=== PATIENT | female | born 1965 | race Caucasian/White ===

== ENCOUNTER 2018-11-10 08:39 | Emergency (ER) | payer OTHER, MEDICARE ==
[~2018-11-10] VITALS: Ht 160 cm; Wt 110.2 kg
[~2018-11-10 08:39] MED LIST: ALBUTEROL2.5 MG/0.5; ALBUTEROL2.5 MG/3 M INH; CRUTCH1 EACH MISC; DILAUDID4 MG PO; IBUPROFEN800 MG PO; MEDICAL MARIJUANA; NICOTINE PATCH1 EAC3 TD; OMEPRAZOLE20 MG; OMEPRAZOLE20 MG PO; OXYCODONE HCL5 MG PO; XANAX0.25 MG PO; XARELTO10 MG PO
[2018-11-10] MEDS ORDERED: PERCOCET 5-3251 EACH PO (11:40)
== END 2018-11-10 12:05 | disposition home or self-care (01) ==
LOC: ED 08:39
DX: S82.832A Other fracture of upper and lower end of left fibula, initial encounter for closed fracture (principal); I10 Essential (primary) hypertension; F17.200 Nicotine dependence, unspecified, uncomplicated; Z88.5 Allergy status to narcotic agent; Z88.8 Allergy status to other drugs, medicaments and biological substances; Z79.899 Other long term (current) drug therapy; W10.8XXA Fall (on) (from) other stairs and steps, initial encounter
CPT/HCPCS: 73560; 73630; 99283

== ENCOUNTER 2019-11-30 18:35 | Emergency (ER) | payer MEDICARE, OTHER ==
[~2019-11-30] VITALS: Ht 160 cm; Wt 110.2 kg
--- OUTSIDE RECORDS SUMMARY | ~2019-11-30 | XMS | Encounter Summary ---
Demographics + + + | Address | [address] | | | [place] [address] | + + + | Home Phone | | + + + | Preferred Language | Unknown | + + + | Marital Status | Unknown | + + + | Mandaen Affiliation | Unknown | + + + | Race | White | + + + | Ethnic Group | Not or | + + + Author + + + | Author | [facility] | | | and [place] | + + + | Organization | [facility] | | | and [place] | + + + | Address | Unknown | + + + | Phone | Unavailable | + + + Support + + +---------+ + | Name | Relationship | Address | Phone | + + +---------+ + | Chosen None | ECON | Unknown | | + + +---------+ + Care Team Providers + +------+ + | Care Evaporator Operator Molasses Name | Role | Phone | + +------+ + | Desiree Randall MD | PCP | | + +------+ + Encounter Details +--------+ + + + + | Date | Type | Department | Care Team | Description | +--------+ + + + + | 11/15/ | Imaging | [facility] | Provider, | | | 2018 | Exam | [facility] | [address] | | | | | IMAGING [address] | [address] | | | | | [address] | [place] [address] | | | | | [place] [address] | | | | | | [phone] | | | +--------+ + + + + Social History + +-------+ +--------+------+ | Tobacco Use | Types | Packs/Day | Years | Date | | | | | Used | | + +-------+ +--------+------+ | Never Assessed | | | | | + +-------+ +--------+------+ + + + | Sex Assigned at | Date Recorded | | | | + + + | Not on file | | + + + documented as of this encounter Plan of Treatment Not on filedocumented as of this encounter Procedures + +--------+ + + + | Procedure Name | Priori | Date/Time | Associated Diagnosis | Comments | | | ty | | | | + +--------+ + + + | MRI CERVICAL SPINE | Routin | 03/12/2017 | | Results for this | | WO CONTRAST | e | 12:00 PM | | procedure are in the | | | | PST | | results section. | + +--------+ + + + documented in this encounter Results MRI Cervical Spine wo Contrast (03/12/2017 12:00 PM PST) + + | Specimen | + + | | + + + + + | Narrative | Performed At | + + + | External films for comparison only | [facility] | | | | | No results will be in the chart. | | + + + + +---------+ + + | Performing | Address | City/State/Zipcode | Phone Number | | Organization | | | | + +---------+ + + | [facility] | | | | + +---------+ + + documented in this encounter Visit Diagnoses Not on filedocumented in this encounter"
--- OUTSIDE RECORDS SUMMARY | ~2019-11-30 | XMS | Encounter Summary ---
Demographics + + + | Address | [address] | | | [place] [address] | + + + | Home Phone | | + + + | Preferred Language | Unknown | + + + | Marital Status | Unknown | + + + | Yazidism Affiliation | Unknown | + + + | Race | White | + + + | Ethnic Group | Not or | + + + Author + + + | Author | [facility] | | | and [place] | + + + | Organization | [facility] | | | [...] Team Providers + +------+ + | Care Shot Core Drill Operator Helper Name | Role | Phone | + +------+ + | Desiree Randall MD | PCP | | + +------+ + Reason for Referral Evaluate & Treat (Routine) +--------+ + + + + + | Status | Reason | Specialty | Diagnoses / | Referred By | Referred To | | | | | Procedures | Contact | Contact | +--------+ + + + + + | Closed | Specialty | Physical | Diagnoses | Francisco, | Joey Singh | | | Services | Medicine and | Bilateral | Joey Carlos MD | Alexandra Carlos MD [address] | | | Required | Rehabilitatio | hand | [address] | | | | n | numbness | [address] | [place], | | | | | Weakness of | [place], | [place] [address] | | | | | both hands | [place] [address] | Phone: | | | | | Bilateral | Phone: | [phone] | | | | | elbow joint | [phone] | Fax: | | | | | pain | Fax: | [phone] | | | | | Cervicalgia | [phone] | | | | | | Procedures | | | | | | | VT MOTOR | | | | | | | &/SENS | | | | | | | NRV CNDJ | | | | | | | PRECONF | | | | | | | ELTRODE LIMB | | | | | | | VT NEEDLE | | | | | | | EMG EA | | | | | | | EXTREMITY | | | | | | | W/PARASPINL | | | | | | | AREA LIMITED | | | | | | | DOS | | | | | | | 06/17/18 | | | +--------+ + + + + + Reason for Visit + + + | Reason | Comments | + + + | Neck Pain | | + + + Evaluate & Treat (Routine) +--------+--------+ + + + + | Status | Reason | Specialty | Diagnoses / | Referred By | Referred To | | | | | Procedures | Contact | Contact | +--------+--------+ + + + + | Closed | | Physical | Diagnoses | Randall, | Joey Singh | | | | Medicine and | Chronic | Desiree Ulloa MD | Alexandra Carlos MD [address] | | | | Rehabilitatio | neck pain | [address] | | | | n | [address] | [place], | | | | | | [place], | [place] [address] | | | | | | [place] [address] | Phone: | | | | | | Phone: | [phone] | | | | | | [phone] | Fax: | | | | | | Fax: | [phone] | | | | | | [phone] | | +--------+--------+ + + + + Encounter Details +--------+---------+ + + + | Date | Type | Department | Care Team | Description | +--------+---------+ + + + | 04/10/ | Office | [facility] | Joey Singh, | Bilateral hand | | 2018 | Visit | PHYSIATRY [address] | MD [address] | numbness (Primary | | | | [address] | [place] | Dx); Weakness of | | | | [place] | [address] | both hands; | | | | [address] | | Bilateral elbow | | | | [phone] | | joint pain; Medial | | | | | | epicondylitis of | | | | | | right elbow; | | | | | | Cervicalgia; History | | | | | | of fibromyalgia | +--------+---------+ + + + Social History + + + +--------+ + | Tobacco Use | Types | Packs/Day | Years | Date | | | | | Used | | + + + +--------+ + | Former Smoker | Cigarettes | 0.5 | | Started: 06/12/1980 | + + + +--------+ + + +---+---+---+ | Smokeless Tobacco: | | | | | Never Used | | | | + +---+---+---+ + + +---------+ + | Alcohol Use | Drinks/Week | oz/Week | Comments | + + +---------+ + | No | | | | + + +---------+ + + + + | Sex Assigned at | Date Recorded | | | | + + + | Not on file | | + + + documented as of this encounter Last Filed Vital Signs + + + + + | Vital Sign | Reading | Time Taken | Comments | + + + + + | Blood Pressure | 100/70 | 04/10/2018 1:11 PM | | | | | PST | | + + + + + | Pulse | 84 | 04/10/2018 1:11 PM | | | | | PST | | + + + + + | Temperature | - | - | | + + + + + | Respiratory Rate | - | - | | + + + + + | Oxygen Saturation | - | - | | + + + + + | Inhaled Oxygen | - | - | | | Concentration | | | | + + + + + | Weight | 113.4 kg (250 lb) | 04/10/2018 1:11 PM | | | | | PST | | + + + + + | Height | 160 cm (5' 3") | 04/10/2018 1:11 PM | | | | | PST | | + + + + + | Body Mass Index | 44.29 | 04/10/2018 1:11 PM | | | | | PST | | + + + + + documented in this encounter Patient Instructions Patient Instructions Candice Davenport, Human Relations Teacher - 04/10/2018 1:00 PM PSTPurcha se and wear carpal tunnel wrist splints. Wear them at night, only at night, every night, ne brenda during waking hours. Make sure they are not too tight. They only need to prevent the w rists from bending during sleep. Please attend your scheduled nerve conduction study and EMG appointment. Nerve conduction studies and EMG require a great deal of time to complete. If you will be unable to make your appointment please contact the clinic at least one full business day carter or to your appointment . Missed appoints without cancellation will only be re scheduled once. Children under the age of 13 are not permitted in the room during the nerve study. If acco mpanied by children under the age of 13, they will need an adult to supervise them, while th ey wait in the lobby. Prior to your appointment wash the skin with soap and water. This is to remove any of the natural oils on the skin which may interfere with the completion of the study. Please do not wear any lotion prior to the study as lotion may also interfere with the comp letion of the study. When attending your study please bring appropriate attire. If you are having a study of th e upper extremities please bring a short sleeve shirt to wear during the study. If you are having a study of the lower extremities please bring shorts to wear during the study. At the time of your study, please remind the physician if you are taking any blood thinning medications such as Coumadin, or heparin. At the time of your study, please remind the physician if you have an implanted electronic device such as a pacemaker. documented in this encounter Progress Notes Joey Singh MD - 04/10/2018 1:00 PM PSTFormatting of this note might be different fro m the original. Joey Singh MD [address] [place] [address], [address] [place], [place] [address] FAX: PHYSICAL MEDICINE AND REHABILITATION H&P CHIEF COMPLAINT: Chief Complaint Patient presents with Neck Pain HISTORY OF PRESENT ILLNESS: Liliana Cabral is a 52 y.o. female being seen today at the [facility] of Desiree Randall MD for complaints of neck pain that began 3 years ago. Since the sy mptoms began, she has noticed that symptoms have been worsening. Liliana Cabral rates the pain as moderate. The symptoms are continuous. Liliana Cabral d escribes the pain as aching, numbing, sharp and tingling. Her symptoms improve with rest and changing position. Her symptoms worsen with laying down and stretching. The patient also describes arm symptoms that occur on both sides. The arm symptoms are con stant The patient does describe numbness of the third through fifth digit on the left and first a nd second digit on the right. She does report weakness of the bilateral upper extremities. Liliana Cabral reports bilateral elbow pain. She reports the inability to brush her own h air due to pain. She has tried PT, NSAIDS, Steroids and Injections. Liliana Cabral reports that she parti cipated in physical therapy in December of 2017. She reports that she continues with at home exercises as outlined by physical therapy. Liliana Cabral denies taking blood thinning medications such as Coumadin or heparin. She denies having implanted electronic device such as a pacemaker. She denies a history of diabetes. She denies a history of thyroid disease. She denies a history of rheumatoid arthritis. She denies a history of chemical exposure. Liliana Cabral reports that they have had previous nerve conduction study with Dr.Chapin janette vogt 1 year ago. She reports that nerve study was unremarkable. Patient's medications, allergies, past medical, surgical, social and family histories were reviewed and updated as appropriate. 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-steroidal anti-inflammatories (nsaid) Mild intermittent asthma Morbid obesity due to excess calories (HCC) Morbid obesity with BMI of 40.0-44.9, adult (HCC) Osteoarthritis Prediabetes PTSD (post-traumatic stress disorder) Vitamin B12 deficiency Vitamin D deficiency PAST SURGICAL HISTORY: Past Surgical History: Procedure Laterality Date CHOLECYSTECTOMY 2000 KNEE JOINT REPLACEMENT Left 07/2016 KNEE SURGERY Left KNEE SURGERY Right MOUTH SURGERY 2013 SHOULDER SURGERY Right 1999 TUBAL LIGATION 1993 CURRENT MEDICATIONS: Current Outpatient Prescriptions Medication Sig Dispense Refill albuterol 90 mcg/puff inhaler Inhale 1 puff into the lungs every 4 hours as needed. calcium, as carbonate, (OS-KADEN) 600 MG TABS Take 600 mg by mouth 2 times daily (with br eakfast & dinner). ibuprofen (ADVIL,MOTRIN) 800 MG tablet Take 800 mg by mouth. 2-3 times a day omeprazole (PRILOSEC) 20 mg capsule Take 20 mg by mouth 2 times daily. No current facility-administered medications for this visit. ALLERGIES: Allergies Allergen Reactions Meloxicam Other (See Comments) "Skin crawl" Meperidine Hives Tramadol Hives SOCIAL HISTORY: The patient reports that she has quit smoking. Her smoking use included Cigarettes. She st arted smoking about 37 years ago. She smoked 0.50 packs per day. She does not have any smoke less tobacco history on file. She reports that she uses drugs, including Marijuana. She repo rts that she does not drink alcohol. FAMILY HISTORY: Family History Problem Relation Age of Onset Diabetes Mother Heart disease Mother Diabetes Father Hypertension Father Heart disease Sister Diabetes Other Hypertension Other Heart disease Son REVIEW OF SYSTEMS: ROS GENERALLY: No fever, chills,+ night sweats, no weight gain, no weight loss, no anemia, no fatigue. EYES: No eye problems, no impaired sight, +eye glasses/contacts, no eye injury, no double vision, no transient blindness. EARS, NOSE, THROAT and MOUTH: No change in sense taste/smell, no hearing difficulty, no ri nging in ears, no drainage from ears, no ear injury, no dizziness, no voice change, no diffi culty swallowing, no snoring, no sleep apnea/CPAP, + sinus trouble, no dental work. NEUROMUSCULAR: No numbness/pain of arms, no numbness/pain of legs,+ awake with numbness/pa in, + weakness, +muscle aching, no coordination difficulty, no change in walk, no head injur y, +neck injury, no back injury, + pain in neck, + pain in back, no stroke, no fainting spel ls, no loss of consciousness, no tremor/shaking, no seizures,+ headaches, + migraines, no me krishna loss, no speech difficulty, no confusion, no numbness of face. PSYCHIATRIC: No depression, + difficulty sleeping, no anxiety, no bipolar disorder. CARDIOVASCULAR/PULMONARY: No heart attack, no heart murmur, no fluttering heart, no shortn ess of breath, no cough, no Tuberculosis, no chest pain, no swelling ankles, no bloody cough ing, no asthma, no COPD/emphysema. GASTROINTESTINAL: No bowel disease, no nausea/vomiting, no rectal bleeding/hemorrhoids, no constipation, no fecal/stool incontinence, no liver/gallbladder disease, no abdominal pain. GENITOURINARY: No frequent urination, no painful/difficult urination, no urinary incontinen ce, no bladder problems. ENDOCRINE: No diabetes, no thyroid disease, no osteoporosis/osteopenia, no drainage from br easts. INTEGUMENTARY/SKIN: No lump in breasts, no skin disease or skin changes, no rash/itch. HEMATOLOGIC: No enlarged lymph nodes, no easy or unusual bleeding, no cancer. RHEUMATOLOGIC: No joint pain/arthritis, no rheumatoid arthritis PHYSICAL EXAMINATION: Blood pressure 100/70, pulse 84, height 1.6 m (5' 3"), weight 113.4 kg (250 lb). Body mass index is 44.29 kg/m. GENERAL: The patient is well developed and well nourished. HEENT:HEAD/FACE: EYES: Normocephalic and atraumatic. There are no areas of recent trauma. Normal sclerae without icterus. SKIN Limited skin exam shows no significant rashes or lesions. CHEST: The patient is in no acute respiratory distress with unlabored respirations. ABDOMEN: The patient is obese. NEUROLOGIC: The patient is awake, alert, and oriented to time, place, person. She follows simple and complex commands. Her speech is fluent. She comprehends speech well. She has no apparent deficits with short or intermodal truck driver memory. She has appropriate fund of knowledge Cranial nerves appear grossly intact. Tinel's test mildly positive over median nerve at right wrist Tinel's test negative over median nerve at left wrist. Phalen's test positive on the left Phalen's test reproduces forearm pain on the right Sensory exam: intact sensation bilateral upper extremities to monofilament touch. Subjective decreased sensation median distrubution left hand to monofilament touch. Pain located over medial right elbow reproduced with supination and pronation but worse wit h pronation Increased tone in pronator brice on the left Normal 5/5 strength in both upper extremities including biceps, R triceps, wrist dorsiflexi on and finger abduction. Left triceps 4+* 4 * Pottery Striper strength bilaterally 1+ over the biceps, triceps, and brachioradialis of both upper extremities. MUSCULOSKELETAL RADIOGRAPHIC REVIEW: Cervical MRI completed on 03/12/17 were reviewed personally by me, I concur with the results as reported by the Radiologist. ASSESSMENT: 1. Bilateral hand numbness 2. Weakness of both hands 3. Bilateral elbow joint pain 4. Medial epicondylitis of right elbow 5. Cervicalgia PLAN: 1. 1. The differential diagnosis for Liliana Cabral's symptoms included, but are not limi sarah to: carpal tunnel syndrome, pronator brice's syndrome , cubital tunnel syndrome and cervi kaden radiculopathy. Liliana Cabral's clinical presentation is most consistent with carpal t unnel syndrome . Today we discussed treatment options for cervical radiculopathy include physical therapy, n europathic pain medication, cervical steroid injections and last resort surgery. May conside r treatment for neck pain in the future if nerve conduction study demonstrates cervical path ology. 2. Today we reviewed that the nerve study will hopefully help us localize the origin of sym ptoms. We discussed that if carpal tunnel syndrome is discovered, that the nerve study can help determine if the carpal tunnel syndrome is mild, moderate or severe. We discussed that if carpal tunnel is mild the treatments tend to be conservative such as antiinflammatories, hand therapy, wrist splints and sometimes steroid injection. We discussed that moderate an d severe carpal tunnel syndrome generally require surgical release. We discussed that with severe carpal tunnel syndrome there may be permanent damage to the nerve that does not resol ve despite adequate surgical release. We discussed natural progress of carpal tunnel syndro me. We reviewed that carpal tunnel if left untreated, tends to get progressively worse over time. We discussed that if severe carpal tunnel syndrome is left untreated that the amount of permanent nerve damage can get worse leading to worse disability. Today we discussed how to prepare for nerve conduction study and EMG. We discussed not wea ring lotion and bringing a short sleeve shirt to wear. We discussed the process of the test , which involves small shocks to the nerves and that the study may include pin sticks, witho ut shock into the muscles. 3. Today we dicussed possible risk factors and correlating diagnosis associated with carpal tunnel. We dicussed that an individual with diabetes is approximately 6 times more likely t o develop carpal tunnel. 4. Liliana Pichardo Marianna was advised to purchase and wear carpal tunnel wrist splints. Liliana cherry was advised to wear them at night, only at night, every night, never during waking lefty rs. Make sure they are not too tight. They only need to prevent the wrists from bending du ring sleep. We discussed that it only takes approximately 30 minutes of pressure on a nerve to cause nerve damage, but may take approximately 6 months of proper alignment and no pressu re on the nerve to allow for healing. 5. In regards to right elbow pain discussed treatment options include physical therapy, ne uropathic pain medications and steroid injection. May consider right medial epicondyle stero id injection in the future if pain persists. In summary she will return to the clinic of both upper extremities as she reports hand, wri st, forearm, elbow, and neck pain bilaterally. She primarily reports numbness in the left h and. Her right elbow pain is most likely medial epicondylitis. We may consider PT and ster oid injection in the future. We will further discuss treatment recommendations after nerve conduction study is completed, as it will likely guide treatment recommendations. Thank you for allowing me to be involved in the care of your patient. If you have any ques tions regarding the care of your patient please don't hesitate to call. Approximately 45 minutes was spent face to face with Liliana Pichardo Cabral, over half of which wa s spent formulating and discussing their medical treatment plan. I, Joey Singh MD personally performed the services described in this documentation, as scribed by in my presence, OBI Ramon and are both accurate and complete. Joey Singh MD - 04/10/2018 documented in this en counter Plan of Treatment + + +--------+ + + | Name | Type | Priori | Associated Diagnoses | Order Schedule | | | | ty | | | + + +--------+ + + | * [facility] | Outpatient | Routin | Bilateral hand | Ordered: 04/10/2018 | | Physiatry - AMB | Referral | e | numbness Weakness | | | Referral | | | of both hands | | | | | | Bilateral elbow | | | | | | joint pain | | | | | | Cervicalgia | | + + +--------+ + + documented as of this encounter Visit Diagnoses + + | Diagnosis | + + | Bilateral hand numbness - Primary Disturbance of skin sensation | + + | Weakness of both hands | + + | Bilateral elbow joint pain | + + | Medial epicondylitis of right elbow Medial epicondylitis of elbow | + + | Cervicalgia | + + | History of fibromyalgia Personal history of other musculoskeletal disorders | + + documented in this encounter
--- OUTSIDE RECORDS SUMMARY | ~2019-11-30 | XMS | Encounter Summary ---
Demographics + + + | Address | [address] | | | [place] [address] | + + + | Home Phone | | + + + | Preferred Language | Unknown | + + + | Marital Status | Unknown | + + + | Restorationism Affiliation | Unknown | + + + | Race | White | + + + | Ethnic Group | Not or | + + + Author + + + | Author | [facility] | | | and [place] | + + + | Organization | [facility] | | | [...] Team Providers + +------+ + | Care Table Hand Name | Role | Phone | + +------+ + | Desiree Randall MD | PCP | | + +------+ + Encounter Details +--------+ + + + + | Date | Type | Department | Care Team | Description | +--------+ + + + + | 01/09/ | Abstract | [facility] | [place], | | | 2017 | | PHYSIATRY [address] | [address] | | | | | [address] | [address] | | | | | [address] | [place] [address] | | | | | [address] | | | | | | [phone] | | | +--------+ + + + + Social History + + + +--------+ + | Tobacco Use | Types | Packs/Day | Years | Date | | | | | Used | | + + + +--------+ + | Former Smoker | Cigarettes | 0.5 | | Started: 06/12/1980 | + + + +--------+ + + + +---------+ + | Alcohol Use [...] Not on filedocumented as of this encounter Visit Diagnoses Not on filedocumented in this encounter"
--- OUTSIDE RECORDS SUMMARY | ~2019-11-30 | XMS | Encounter Summary ---
Demographics + + + | Address | [address] | | | [place] [address] | + + + | Home Phone | | + + + | Preferred Language | Unknown | + + + | Marital Status | Unknown | + + + | Spiritism Affiliation | Unknown | + + + | Race | White | + + + | Ethnic Group | Not or | + + + Author + + + | Author | [facility] | | | and [place] | + + + | Organization | [facility] | | | [...] Team Providers + +------+ + | Care Control Systems Technician Name | Role | Phone | + +------+ + | Desiree Randall MD | PCP | | + +------+ + Encounter Details +--------+ + + + + | Date | Type | Department | Care Team | Description | +--------+ + + + + | 04/01/ | Imaging | [facility] | Provider, | | | 2019 | Exam | [facility] | [address] | | | | | IM[address]ING [address] | [address] | | | | | [address] | [place] [address] | | | | | [place] [address] | | | | | | [phone] | | | +--------+ + + + [...] | + +--------+ + + + | XR CERVICAL SPINE 4 | Routin | 12/25/2016 | | Results for this | | OR 5 [facility] | e | 10:30 AM | | procedure are in the | | | | PDT | | results section. | + +--------+ + + + documented in this encounter Results XR Cervical Spine 4 or 5 Vws (12/25/2016 10:30 AM PDT) + + | Specimen | + + [...]
--- OUTSIDE RECORDS SUMMARY | ~2019-11-30 | XMS | Encounter Summary ---
Demographics + + + | Address | [address] | | | [place] [address] | + + + | Home Phone | | + + + | Preferred Language | Unknown | + + + | Marital Status | Unknown | + + + | Muslim Affiliation | Unknown | + + + | Race | White | + + + | Ethnic Group | Not or | + + + Author + + + | Author | [facility] | | | and [place] | + + + | Organization | [facility] | | | and [...] Team Providers + +------+ + | Care Aircraft Systems Repairer Name | Role | Phone | + [...] | | | Required | Rehabilitatio | medial | [address] | | | | n | epicondyliti | [address] | [place], | | | | | s of elbow | [place], | [place] [address] | | | | | joint | [place] [address] | Phone: | | | | | Bilateral | Phone: | [phone] | | | | | elbow joint | [phone] | Fax: | | | | | pain | Fax: | [phone] | | | | | Bilateral | [phone] | | | | | | hand | | | | | | | numbness | | | | | | | Weakness of | | | | | | | both hands | | | | | | | Cervicalgia | | | | | | | History of | | | | | | | fibromyalgia | | | | | | | | | | | | | | Prediabetes | | | | | | | Procedures | | | | | | | MT INJECT | | | | | | | TENDON | | | | | | | SHEATH/LIGAM | | | | | | | ENT MT | | | | | | | METHYLPREDNI | | | | | | | SOLONE 40 MG | | | | | | | INJ DOS | | | | | | | 08/04/18 | | | +--------+ + + + + + Evaluate & Treat (Routine) +--------+ + + + + + | Status | Reason | Specialty | Diagnoses / | Referred By | Referred To | | | | | Procedures | Contact | Contact | +--------+ + + + + + | Closed | Specialty | Physical | Diagnoses | Singh, | [facility] | | Services | Therapy | Bilateral | Joey Carlos MD | HOSPITAL | | | Required | | medial | [address] | PHYSICAL | | | | | epicondyliti | [address] | THERAPY [address] | | | | | s of elbow | [place], | [place] | | | | | joint | [place] [address] | [place] | | | | | Bilateral | Phone: | [phone] | | | | | elbow joint | [phone] | Phone: | | | | | pain | Fax: | [phone] | | | | | Bilateral | [phone] | Fax: | | | | | hand | | [phone] | | | | | numbness | | | | | | | Weakness of | | | | | | | both hands | | | | | | | Cervicalgia | | | | | | | History of | | | | | | | fibromyalgia | | | | | | | | | | | | | | Prediabetes | | | | | | | Procedures | | | | | | | 06/25>PEND | | | | | | | INLUIS FOR | | | | | | | REFERRED TO | | | | | | | LOCATION | | | +--------+ + + + + + Reason for Visit + + + | Reason | Comments | + + + | Procedure | BUE NCS/EMG | + + + Evaluate & Treat (Routine) +--------+ + + [...] | hand | [address] | | | | n | numbness | [address] | [place], | | | | | Weakness of | [place], | [place] [address] | | | | | both hands | [place] [address] | Phone: | | | | | Bilateral | Phone: | [phone] | | | | | elbow joint | [phone] | Fax: | | | | | pain | Fax: | [phone] | | | | | Cervicalgia | [phone] | | | | | | Procedures | | | | | | | MT MOTOR | | | | | | | &/SENS 13/> | | | | | | | NRV CNDJ | | | | | | | PRECONF | | | | | | | ELTRODE LIMB | | | | | | | MT NEEDLE | | | | | | | EMG EA | | | | | | | EXTREMITY | | | | | | | W/PARASPINL | | | | | | | AREA LIMITED | | | | | | | DOS | | | | | | | 06/17/18 | | | +--------+ + + + + + Encounter Details +--------+ + + + + | Date | Type | Department | Care Team | Description | +--------+ + + + + | 06/17/ | Procedure | [facility] | Joey Singh, | Bilateral medial | | 2019 | visit | PHYSIATRY [address] | MD [address] | epicondylitis of | | | | [address] | [place] | elbow joint (Primary | | | | [place] | [id number] | Dx); Bilateral | | | | [phone] | | elbow joint pain; | | | | [phone] | | Bilateral hand | | | | | | numbness; Weakness | | | | | | of both hands; | | | | | | Cervicalgia; History | | | | | | of fibromyalgia; | | | | | | Prediabetes | +--------+ + + + + Social [...] + + + | Blood Pressure | - | - | | + + + + + | Pulse | - | - | | + [...] Weight | 113.4 kg (250 lb) | 06/17/2018 8:43 AM | | | | | PDT | | + + + + + | Height | 160 cm (5' 3") | 06/17/2018 8:43 AM | | | | | PDT | | + + + + + | Body Mass Index | 44.29 | 06/17/2018 8:43 AM | | | | | PDT | | + + + + + documented in this encounter Patient Instructions Patient Instructions Larisa Murphy RN - 06/17/2018 9:00 AM PDTX-rays have been request ed. Please go to the x-ray department after your appointment to complete these x-rays. The results of your x-rays will be reviewed at your next appointment. If your x-rays demonstra te any emergent results, the clinic will contact you. Please continue routine exercise, GOOD JOB! Please try Cold light laser therapy with therapy. documented in this encounter Progress Notes Joey Singh MD - 06/17/2018 9:00 AM PDTFormatting of this note might be different fro m the original. [facility] Physical Medicine & Rehabilitation [address] [place] [address], [address] [place] [address] Test Date: 06/17/2018 Patient Name: Liliana Cabral : 1965 Physician: Joey Singh MD (Jr.) MR #: [id number] Sex: Female Referring Physician: Desiree Randall MD HISTORY: Liliana Cabral presents to the clinic today for previously scheduled bilateral upper extre mity electrodiagnostic study. She reports that she has had chronic pain in her neck and bot h arms for 4+ years. She reports history of fibromyalgia. She reports that she took Cymbal ta in the past without benefit. She reports pain in bilateral medial elbows, bilateral fore arm and hand pain. She reports that she did physical therapy for one year without benefit. She reports that when physical therapy focused on her neck, it seemed more helpful. She re ports that she received elbow steroid injections in the past, which initially helped, but gonzalez bsequent injections were not helpful. She reports that she has weakness in both upper extre mities which she describes as weakness with lifting (elbow flexion). She reports intermitte nt numbness in both hands. She reports that hand numbness occurs several times per day. Sh e reports that episodes of hand numbness last minutes. She reports that hand numbness is br ought on by using her hands, such as holding something. She reports that in the right hand the numbness is strongest over the first and second fingers, but involves the whole hand. S he reports that in the left upper extremity the numbness is strongest over the third finger, but involves the whole hand. She reports that symptoms are worse in the left hand compared to the right. She reports that symptoms first started in her left hand. She reports that her symptoms are reduced by resting her hands and changing activity. She reports that sleep ing with her elbow straight cause her arms to feel very stiff and difficult to move first th ing in the morning. She has not noted direct association between her neck pain and her arm symptoms. She reports constant dull ache in pain in her bilateral neck and shoulders. She reports that the pain is moderate at most times, but some times severe. She reports a histo ry of pre-diabetes. She reports that her elbow pain interferes with her ability to brush he r hair and complete activities that require bending her arms. She has tried ibuprofen which offers some benefit in reducing her pain. She works hourly shift. She reports poor sleep, averaging 4 hours of sleep per day (during the afternoon). She had prior nerve study with Brenda Colindres, which was reported by Liliana Cabral as being normal. PHYSICAL EXAM: Liliana Cabral is in no acute distress. She appears somnolent. She reports being tired s swati she just completed working her hourly shift. She has a miniature train driver to take her home. She is alert and oriented to person, place, time and situation. Her speech is normal. Her crania l nerves are grossly intact. She is able to follow complex directions. Tinel's test is pos itive over the median nerves at both wrists. Phalen's test is negative bilaterally. She andrade s tenderness over the medial epicondyles bilaterally. In both upper extremities, hand prona tion against resistance reproduces medial elbow pain. Spurling's test was negative bilatera lly. She has increased tone in trapezius muscles bilaterally. Sensory exam demonstrates in tact sensation in both upper extremities with monofilament testing. Subjectively she report s reduced sensation over median distribution in both hands. Motor exam demonstrates 5/5 str ength in both upper extremities with biceps, triceps, wrist dorsiflexion, and finger abducti on bilaterally. Hand subpoena server strength is 4+ bilaterally, but she may have inhibition secondary to pain. Her reflexes are normal 2+ over the biceps, triceps, and brachioradialis bilatera lly. There is no focal muscle atrophy in either upper extremity. There was no fasciculatio ns noted in either upper extremity. Radial and ulnar pulses are normal and palpable at the wrists bilaterally. The skin of the hands has normal coloration with no evidence of cyanosi s. Her hands do become cool quickly during the study and required warming prior to and duri ng the study. Nerve Conduction Studies Anti Sensory Summary Table Site NR Peak (ms) Norm Peak (ms) O-P Amp (V) Norm O-P Amp Site1 Site2 Delta-0 (ms) Dist (cm) Bhupinder (m/s) Norm Bhupinder (m/s) Left Median Anti Sensory (2nd Digit) Wrist 3.3 <3.6 70.2 >10 Wrist 2nd Digit 2.6 14.0 54 >39 Elbow 7.4 17.9 Elbow Wrist 3.9 25.5 65 >48 Right Median Anti Sensory (2nd Digit) Wrist 3.4 <3.6 49.4 >10 Wrist 2nd Digit 2.7 14.0 52 >39 Elbow 7.3 19.5 Elbow Wrist 3.6 22.5 63 >48 Left Radial Anti Sensory (Base 1st Digit) Wrist 2.6 <2.7 21.8 Wrist Base 1st Digit 1.8 10.0 56 Right Radial Anti Sensory (Base 1st Digit) Wrist 2.6 <2.7 22.4 Wrist Base 1st Digit 1.9 10.0 53 Left Ulnar Anti Sensory (5th Digit) Wrist 3.2 <3.7 59.2 >15.0 Wrist 5th Digit 2.4 14.0 58 >38 B Elbow 6.5 21.1 B Elbow Wrist 3.2 19.0 59 >47 A Elbow 7.8 16.5 A Elbow B Elbow 1.3 10.0 77 Right Ulnar Anti Sensory (5th Digit) Wrist 3.5 <3.7 39.1 >15.0 Wrist 5th Digit 2.7 14.0 52 >38 B Elbow 6.8 28.2 B Elbow Wrist 3.0 19.0 63 >47 A Elbow 8.5 20.3 A Elbow B Elbow 1.5 10.0 67 Motor Summary Table Site NR Onset (ms) Norm Onset (ms) O-P Amp (mV) Norm O-P Amp Site1 Site2 Delta-0 (ms) Dist (cm) Bhupinder (m/s) Norm Bhupinder (m/s) Left Median Motor (Abd Poll Brev) Wrist 3.2 <4.2 7.1 >5 Elbow Wrist 4.5 24.0 53 >50 Elbow 7.7 7.1 Axilla Elbow 1.4 9.0 64 Axilla 9.1 7.0 Right Median Motor (Abd Poll Brev) Wrist 3.7 <4.2 8.5 >5 Elbow Wrist 3.8 21.0 55 >50 Elbow 7.5 8.2 Axilla Elbow 1.4 10.0 71 Axilla 8.9 8.6 Left Ulnar Motor (Abd Dig Minimi) Wrist 2.8 <4.2 12.4 >3 B Elbow Wrist 3.4 19.0 56 >53 B Elbow 6.2 11.4 A Elbow B Elbow 1.3 10.0 77 >53 A Elbow 7.5 12.1 Right Ulnar Motor (Abd Dig Minimi) Wrist 3.2 <4.2 11.9 >3 B Elbow Wrist 3.1 19.0 61 >53 B Elbow 6.3 11.7 A Elbow B Elbow 1.4 10.0 71 >53 A Elbow 7.7 11.6 Comparison Summary Table Site NR Peak (ms) Norm Peak (ms) P-T Amp (V) Site1 Site2 Delta-P (ms) Norm Delta (ms) Left Median/Radial Dig I Comparison (Digit 1 - 10cm) Median 2.6 <2.9 98.8 Median Radial 0.1 <0.4 Radial 2.7 <2.8 18.4 Right Median/Radial Dig I Comparison (Digit 1 - 10cm) Median 2.6 <2.9 190.5 Median Radial 0.0 <0.4 Radial 2.6 <2.8 17.1 Left Median/Ulnar Dig IV Comparison (Digit 4 - 14cm) Median Wr 3.3 <3.3 65.0 Median Wr Ulnar Wr 0.0 <0.4 Ulnar Wr 3.3 <3.3 50.0 Right Median/Ulnar Dig IV Comparison (Digit 4 - 14cm) Median Wr 3.4 <3.3 39.3 Median Wr Ulnar Wr 0.1 <0.4 Ulnar Wr 3.3 <3.3 41.7 Left Median/Ulnar Palm Comparison (Wrist - 8cm) Median Palm 2.1 <2.5 62.3 Median Palm Ulnar Palm 0.2 <0.3 Ulnar Palm 1.9 <2.5 25.1 Right Median/Ulnar Palm Comparison (Wrist - 8cm) Median Palm 2.3 <2.5 33.3 Median Palm Ulnar Palm 0.1 <0.3 Ulnar Palm 2.2 <2.5 17.0 F Wave Studies NR F-Lat (ms) Lat Norm (ms) L-R F-Lat (ms) L-R Lat Norm Left Median (Mrkrs) (Abd Poll Brev) 26.43 <33 0.40 <2.2 Right Median (Mrkrs) (Abd Poll Brev) 26.83 <33 0.40 <2.2 Left Ulnar (Mrkrs) (Abd Dig Min) 27.24 <36 0.81 <2.5 Right Ulnar (Mrkrs) (Abd Dig Min) 26.43 <36 0.81 <2.5 EMG Side Muscle Nerve Root Ins Act Fibs Psw Amp Dur Poly Recrt Int Pat Comment Right Deltoid Axillary C5-6 Nml Nml Nml Nml Nml Nml Nml Nml Right Biceps Musculocut C5-6 Nml Nml Nml Nml Nml Nml Nml Nml Right Triceps Radial C6-7-8 Nml Nml Nml Nml Nml Nml Nml Nml Right Anconeus Radial C7-8 Nml Nml Nml Nml Nml Nml Nml Nml Right PronatorTeres Median C6-7 Nml Nml Nml Nml Nml Nml Nml Nml Right 1stDorInt Ulnar C8-T1 Nml Nml Nml Nml Nml Nml Nml Nml Right Abd Poll Brev Median C8-T1 Nml Nml Nml Nml Nml Nml Nml Nml Left Deltoid Axillary C5-6 Nml Nml Nml Nml Nml Nml Nml Nml Left Biceps Musculocut C5-6 Nml Nml Nml Nml Nml Nml Nml Nml Left Triceps Radial C6-7-8 Nml Nml Nml Nml Nml Nml Nml Nml Left Anconeus Radial C7-8 Nml Nml Nml Nml Nml Nml Nml Nml Left PronatorTeres Median C6-7 Nml Nml Nml Nml Nml Nml Nml Nml Left 1stDorInt Ulnar C8-T1 Nml Nml Nml Nml Nml Nml Nml Nml Left Abd Poll Brev Median C8-T1 Nml Nml Nml Nml Nml Nml Nml Nml Nerve Conduction Studies Motor Left/Right Comparison Site L Lat (ms) R Lat (ms) L-R Lat (ms) L Amp (mV) R Amp (mV) L-R Amp (%) Site1 Site2 L Ve l (m/s) R Bhupinder (m/s) L-R Bhupinder (m/s) Median Motor (Abd Poll Brev) Wrist 3.2 3.7 0.5 7.1 8.5 16.5 Elbow Wrist 53 55 2 Elbow 7.7 7.5 0.2 7.1 8.2 13.4 Axilla Elbow 64 71 7 Axilla 9.1 8.9 0.2 7.0 8.6 18.6 Ulnar Motor (Abd Dig Minimi) Wrist 2.8 3.2 0.4 12.4 11.9 4.0 B Elbow Wrist 56 61 5 B Elbow 6.2 6.3 0.1 11.4 11.7 2.6 A Elbow B Elbow 77 71 6 A Elbow 7.5 7.7 0.2 12.1 11.6 4.1 Anti Sensory Left/Right Comparison Site L Lat (ms) R Lat (ms) L-R Lat (ms) L Amp (V) R Amp (V) L-R Amp (%) Site1 Site2 L Bhupinder (m/s) R Bhupinder (m/s) L-R Bhupinder (m/s) Median Anti Sensory (2nd Digit) Wrist 3.3 3.4 0.1 70.2 49.4 29.6 Wrist 2nd Digit 54 52 2 Elbow 7.4 7.3 0.1 17.9 19.5 8.2 Elbow Wrist 65 63 2 Radial Anti Sensory (Base 1st Digit) Wrist 2.6 2.6 0.0 21.8 22.4 2.7 Wrist Base 1st Digit 56 53 3 Ulnar Anti Sensory (5th Digit) Wrist 3.2 3.5 0.3 59.2 39.1 34.0 Wrist 5th Digit 58 52 6 B Elbow 6.5 6.8 0.3 21.1 28.2 25.2 B Elbow Wrist 59 63 4 A Elbow 7.8 8.5 0.7 16.5 20.3 18.7 A Elbow B Elbow 77 67 10 Comparison Left/Right Comparison Site L Lat (ms) R Lat (ms) L-R Lat (ms) L Amp (V) R Amp (V) L-R Amp (%) Median/Radial Dig I Comparison (Digit 1 - 10cm) Median 2.6 2.6 0.0 98.8 190.5 48.1 Radial 2.7 2.6 0.1 18.4 17.1 7.1 Median/Ulnar Dig IV Comparison (Digit 4 - 14cm) Median Wr 3.3 3.4 0.1 65.0 39.3 39.5 Ulnar Wr 3.3 3.3 0.0 50.0 41.7 16.6 Median/Ulnar Palm Comparison (Wrist - 8cm) Median Palm 2.1 2.3 0.2 62.3 33.3 46.5 Ulnar Palm 1.9 2.2 0.3 25.1 17.0 32.3 NCV FINDINGS: Evaluation of the Right median/ulnar (dig IV) comparison nerve showed prolong ed distal peak latency (Median Wr). All remaining nerves (as indicated in the following tab les) were within normal limits. All F Wave latencies were within normal limits. EMG FINDINGS: All examined muscles (as indicated in the following table) showed no evidence of electrical instability. DATABASE: Cervical MRI from 03/22/2017 imaging was personally reviewed by me. I concur with findings as reported by the radiologist. The imaging demonstrates mild cervical spondylosis at C5-6 . There is no significant central spinal stenosis. There is no significant neural foramina l narrowing. There are no findings that would suggest cervical radiculopathy. IMPRESSION: This is a normal study. Nerve conduction study of both upper extremities is normal. There is no evidence of median neuropathy in either upper extremity. There is no evidence of ulnar neuropathy in either u pper extremity. There is no evidence of radial neuropathy in either upper extremity. Sensory nerve study comparing median and ulnar nerves to the right fourth digit demonstrate d mildly prolonged latency of the median nerve. All other right median nerve studies were n ormal. These findings do NOT meet the diagnostic criteria for median neuropathy. This find ing most likely represents artifact or measuring error. The presence of early peripheral ne uropathy or extremely mild/early median neuropathy cannot be absolutely excluded. Repeating nerve study (screening study of median nerve in the right upper extremity) in one year coul d be helpful, if her symptoms persist. Needle EMG of both upper extremities is normal. There is no evidence of cervical radiculop athy in either upper extremity. Absence is evidence is not proof of absence. Cervical radi culopathy can still be present despite a normal EMG. However, Liliana Cabral's unremarkabl e cervical MRI paired with today's normal EMG, would suggest that a diagnosis of cervical ra diculopathy is extremely unlikely. DISCUSSION: Liliana Cabral demonstrated normal tolerance to nerve conduction study and EMG of both upp er extremities. She was able to complete the entire study. As noted above, this study was unremarkable. Liliana Cabral does not have carpal tunnel s yndrome. Lilinaa Cabral does not have evidence of cervical radiculopathy or other nerve ne uropathy. 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 We discussed the difference between acute and chronic epico ndylitis. She has been asked to return to physical therapy for cold light laser therapy to treat bilateral chronic medial epicondylitis. She will return to the clinic for bilateral m edial epicondyle steroid injections for bilateral medial epicondylitis. Today we reviewed the association between diabetes, pre-diabetes and chronic inflammatory c onditions. She was encouraged to participate in an exercise program 30 minutes per day, 7 d ays per week. Today we reviewed the association between fibromyalgia, chronic sleep deprivation, and chrome tanner josiah pain. She was encouraged to make lifestyle adjustments if possible. She has been asked to complete bilateral elbow x-rays. She reports elbow stiffness in the morning. We will evaluate for underlying arthritic changes. The x-rays will also evaluate for evidence of calcific tendonitis. We may consider evaluation for polyarthralgia and asso ciated rheumatologic conditions in the future. Approximately 25 minutes was spent face to face with Lilianaanurag Cabral, over half of which wa s spent formulating and discussing their medical treatment plan. Thank you for allowing me to be involved in the care of your patient. If you have any quest ions or comments, please do not hesitate to call. Joey Singh MD (Jr.) Physical Medicine and Rehabilitation Cc: Desiree Randall MD documented in this en counter Plan of Treatment + +---------+--------+ + + | Name | Type | Priori | Associated Diagnoses | Order Schedule | | | | ty | | | + +---------+--------+ + + | XR Elbow Left 3 + Vw | Imaging | Routin | Bilateral medial | Expected: | | | | e | epicondylitis of | 06/17/2018, Expires: | | | | | elbow joint | 06/18/2019 | | | | | Bilateral elbow | | | | | | joint pain | | | | | | Bilateral hand | | | | | | numbness Weakness | | | | | | of both hands | | | | | | Cervicalgia History | | | | | | of fibromyalgia | | | | | | Prediabetes | | + +---------+--------+ + + | XR Elbow Right 3 + | Imaging | Routin | Bilateral medial | Expected: | | Vw | | e | epicondylitis of | 06/17/2018, Expires: | | | | | elbow joint | 06/18/2019 | | | | | Bilateral elbow | | | | | | joint pain | | | | | | Bilateral hand | | | | | | numbness Weakness | | | | | | of both hands | | | | | | Cervicalgia History | | | | | | of fibromyalgia | | | | | | Prediabetes | | + +---------+--------+ + + + + +--------+ + + | Name | Type | Priori | Associated Diagnoses | Order Schedule | | | | ty | | | + + +--------+ + + | Physical Therapy - | Outpatient | Routin | Bilateral medial | Ordered: 06/17/2018 | | Ambulatory Referral | Referral | e | epicondylitis of | | | | | | elbow joint | | | | | | Bilateral elbow | | | | | | joint pain | | | | | | Bilateral hand | | | | | | numbness Weakness | | | | | | of both hands | | | | | | Cervicalgia History | | | | | | of fibromyalgia | | | | | | Prediabetes | | + + +--------+ + + | * [facility] | Outpatient | Routin | Bilateral medial | Ordered: 06/17/2018 | | Physiatry - AMB | Referral | e | epicondylitis of | | | Referral | | | elbow joint | | | | | | Bilateral elbow | | | | | | joint pain | | | | | | Bilateral hand | | | | | | numbness Weakness | | | | | | of both hands | | | | | | Cervicalgia History | | | | | | of fibromyalgia | | | | | | Prediabetes | | + + +--------+ + + documented as of this encounter Visit Diagnoses + + | Diagnosis | + + | Bilateral medial epicondylitis of elbow joint - Primary | + + | Bilateral elbow joint pain | + + | Bilateral hand numbness Disturbance of skin sensation | + + | Weakness of both hands | + + | Cervicalgia | + + | History of fibromyalgia Personal history of other musculoskeletal disorders | + + | Prediabetes Other abnormal glucose | + + documented in this encounter
--- OUTSIDE RECORDS SUMMARY | ~2019-11-30 | XMS | Clinical Summary ---
Demographics + + + | Address | [address] | | | [place] [address] | + + + | Home Phone | | + + + | Preferred Language | Unknown | + + + | Marital Status | Unknown | + + + | Mandaeism Affiliation | Unknown | + + + | Race | White | + + + | Ethnic Group | Not or | + + + Author + + + | Author | [facility] | | | and [place] | + + + | Organization | [facility] | | | [...] Team Providers + +------+ + | Care Airplane Rigger Name | Role | Phone | + +------+ + | Desiree Randall MD | PCP | | + +------+ + Allergies + + + + + + | Active Allergy | Reactions | Severity | Noted | Comments | | | | | Date | | + + + + + + | Meperidine | Hives | | 01/10/20 | | | | | | 18 | | + + + + + + | Meloxicam | Other (See Comments) | | 01/10/20 | "Skin crawl" | | | | | 18 | | + + + + + + | Tramadol | Hives | | 01/10/20 | | | | | | 20 | | + + + + + + Medications + + + +---------+------+------+-------+ | Medication | Sig | Dispensed | Refills | Star | End | Statu | | | | | | t | Date | s | | | | | | Date | | | + + + +---------+------+------+-------+ | ibuprofen | Take 800 mg by | | 0 | | | Activ | | (ADVIL,MOTRIN) 800 | mouth. 2-3 times a | | | | | e | | MG tablet | day | | | | | | + + + +---------+------+------+-------+ | omeprazole | Take 20 mg by mouth | | 0 | | | Activ | | (PRILOSEC) 20 mg | 2 times daily. | | | | | e | | capsule | | | | | | | + + + +---------+------+------+-------+ | albuterol 90 | Inhale 1 puff into | | 0 | | | Activ | | mcg/puff inhaler | the lungs every 4 | | | | | e | | | hours as needed. | | | | | | + + + +---------+------+------+-------+ | calcium, as | Take 600 mg by mouth | | 0 | | | Activ | | carbonate, (OS-SANDY) | 2 times daily (with | | | | | e | | 600 MG TABS | breakfast & | | | | | | | | dinner). | | | | | | + + + +---------+------+------+-------+ Active Problems No known active problems Immunizations + + + + | Name | Administration Dates | Next Due | + + + + | INFLUENZA PF | 11/20/2017 | | | TRIVALENT(PED/ADOL/A | | | | DULT) PSKT | | | + + + + Family History + + +------+ + | Medical History | Relation | Name | Comments | + + +------+ + | Diabetes | Father | | | + + +------+ + | Hypertension | Father | | | + + +------+ + | Diabetes | Mother | | | + + +------+ + | Heart disease | Mother | | | + + +------+ + | Diabetes | Other | | | + + +------+ + | Hypertension | Other | | | + + +------+ + | Heart disease | Sister | | | + + +------+ + | Heart disease | Son | | | + + +------+ + + +------+ + + | Relation | Name | Status | Comments | + +------+ + + | Father | | | | + +------+ + + | Mother | | | | + +------+ + + | Other | | | | + +------+ + + | Sister | | Alive | | + +------+ + + | Son | | | | + +------+ + + Social History + + + [...] on file | | + + + Last Filed Vital Signs + + + [...] | | + + + + + Plan of Treatment + + + + + | Health Maintenance | Due Date | Last | Comments | | | | Done | | + + + + + | Hepatitis C | | | | | Screening | 8 | | | + + + + + | Med Mgmt: BUN | | | | | | 8 | | | + + + + + | Med Mgmt: Cr | | | | | | 8 | | | + + + + + | Medication | | | | | Management | 8 | | | + + + + + | Vaccine: | | | | | Dtap/Tdap/Td (1 - | 7 | | | | Tdap) | | | | + + + + + | Cervical Cancer | | | | | Screening (Pap) | 8 | | | + + + + + | Breast Cancer | | | | | Screening | 3 | | | + + + + + | Colorectal Cancer | | | | | Screening | 8 | | | | (Colonoscopy) | | | | + + + + + | Vaccine: Zoster (1 | | | | | of 2) | 8 | | | + + + + + | Adult Annual | | | | | Wellness Visit | 8 | | | + + + + + | Vaccine: Influenza | | 11/21/19 | | | (#1) | 0 | 18 | | + + + + + Results Not on filefrom Last 3 Months Insurance + +--------+ +--------+ +---------+--------+ | Payer | Benefi | Subscriber | Effect | Phone | Address | Type | | | t Plan | ID | radha | | | | | | / | | Dates | | | | | | Group | | | | | | + +--------+ +--------+ +---------+--------+ | MEDICARE | MEDICA | [id number] | 03/04/19 | [phone] | | Medica | | | RE | | 14-Pre | 5 | | re | | | PART A | | sent | | | | | | AND B | | | | | | + +--------+ +--------+ +---------+--------+ | [employer] | [employer]A | [id number] | 04/10/19 | [phone] | | Medica | | MEDICAID HMO | HEALTH | | 19-Pre | 1 | | id | | | MDCD | | sent | | | | | | [place] | | | | | | + +--------+ +--------+ +---------+--------+ + +--------+ +--------+ + + | Guarantor Name | Accoun | Relation to | Date | Phone | Billing Address | | | t Type | Patient | of | | | | | | | | | | + +--------+ +--------+ + + | Liliana Cabral | Person | Self [birth year] | [address] | | | al/Fam | | 1966 | [phone] | [place] | | | [place] | | | [address] (Home) | [phone] | + +--------+ +--------+ + + Advance Directives + + + + + | Type | Date Recorded | Patient | Explanation | | | | Hazardous Substances Scientist | | + + + + + | Power of | | | | | Records Coordinator | | | | + + + + + | Advance | | | | | Directive | | | | + + + + +
[~2019-11-30 18:35] MED LIST changes: +PERCOCET 5-3251 EACH PO
[2019-11-30] MEDS ORDERED: BACTRIM DS TAB1 EACH PO (19:21)
== END 2019-11-30 19:28 | disposition home or self-care (01) ==
LOC: ED 18:35
DX: N39.0 Urinary tract infection, site not specified (principal); I10 Essential (primary) hypertension; F17.200 Nicotine dependence, unspecified, uncomplicated; Z88.8 Allergy status to other drugs, medicaments and biological substances; Z88.5 Allergy status to narcotic agent; Z79.899 Other long term (current) drug therapy
CPT/HCPCS: 81001; 99283

== ENCOUNTER 2020-03-09 09:44 | Emergency (ER) | payer OTHER ==
[~2020-03-09] VITALS: Ht 160 cm; Wt 110.2 kg
[~2020-03-09 09:44] MED LIST changes: +BACTRIM DS TAB1 EACH PO
[2020-03-09] MEDS ORDERED: PREDNISONE20 MG PO (11:30)
[2020-03-09] MEDS ORDERED: NORCO 5-325 TA1 EACH PO (11:30)
== END 2020-03-09 11:43 | disposition home or self-care (01) ==
LOC: ED 09:44
DX: S76.012A Strain of muscle, fascia and tendon of left hip, initial encounter (principal); W19.XXXA Unspecified fall, initial encounter; I10 Essential (primary) hypertension; F17.200 Nicotine dependence, unspecified, uncomplicated; Z88.8 Allergy status to other drugs, medicaments and biological substances; Z88.5 Allergy status to narcotic agent; Z79.899 Other long term (current) drug therapy
CPT/HCPCS: 73502; 99283-25

== ENCOUNTER 2023-09-22 08:51 | Emergency (ER) | payer MEDICARE, OTHER ==
[~2023-09-22] VITALS: Ht 160 cm; Wt 120.8 kg
[~2023-09-22 08:51] MED LIST changes: +NORCO 5-325 TA1 EACH PO; +PREDNISONE20 MG PO
[2023-09-22] MEDS ORDERED: predniSONE 20 MG TAB PO ONE (09:45)
[2023-09-22] MEDS ORDERED: HYDROCODONE/ACETA 5/325 TAB PO ONE (09:45)
[2023-09-22] MEDS ORDERED: CYCLOBENZAPRINE HCL 10 MG TAB PO ONE (09:45)
[2023-09-22] MEDS ORDERED: KETOROLAC TROMETHAMINE 60 MG/2 ML VIAL IM ONE (09:45)
[2023-09-22] MEDS ORDERED: ONDANSETRON 4 MG TAB ODT SL ONE (10:15)
[2023-09-22] MEDS ORDERED: IBU600 MG PO (11:03)
[2023-09-22] MEDS ORDERED: LIDODERM1 EACH TOP (11:03)
[2023-09-22] MEDS ORDERED: CYCLOBENZAPRINE10 MG PO (11:03)
[2023-09-22] MEDS ORDERED: DILAUDID2 MG PO (11:03)
[2023-09-22] MEDS ORDERED: PREDNISONE20 MG PO (11:03)
[2023-09-22 11:08] VITALS: BP 160/85
== END 2023-09-22 11:08 | disposition home or self-care (01) ==
LOC: ED 08:51
DX: M54.42 Lumbago with sciatica, left side (principal); I10 Essential (primary) hypertension; F17.200 Nicotine dependence, unspecified, uncomplicated; Z88.5 Allergy status to narcotic agent; Z88.8 Allergy status to other drugs, medicaments and biological substances; Z79.899 Other long term (current) drug therapy
CPT/HCPCS: 96372; 99283-25; A9270; J1885; J7512